=== PATIENT | female | born 1940 | race African-American/Black ===

== ENCOUNTER 2022-08-23 01:22 | Inpatient (IN) | payer OTHER ==
[~2022-08-23] VITALS: Ht 172.7 cm; Wt 56.8 kg
[2022-08-23 03:45] LABS: HEMATOCRIT. 31.3 % (36.0-48.0); HEMOGLOBIN. 10.2 g/dL (12.0-16.0); MEAN CORPUSCULAR HEMOGLOBIN 28.5 pg (28.0-32.0); MEAN CORPUSCULAR VOLUME 87.5 fL (81.0-99.0); MEAN PLATELET VOLUME 6.9 fl (7.4-10.4); PLATELET 210 x1000/uL (130-400); RED BLOOD CELL COUNT 3.58 mill/uL (4.2-5.4); RED CELL DISTRIBUTION WIDTH 14.9 % (11.6-14.6)
[2022-08-23 03:53] LABS: CHLORIDE 105 mEq/L (98-107)
[2022-08-23 04:07] LABS: PLATELET ESTIMATE NORMAL
[2022-08-23] MEDS ORDERED: CEFTRIAXONE 1 G PREMIX 50 ML IV NR (06:00)
[2022-08-23] MEDS ORDERED: SODIUM CHLORIDE 0.9% 250 ML IV NR (06:00)
[2022-08-23] MEDS ORDERED: ENOXAPARIN 40MG/0.4ML SYR SUBCUT SCH (10:00)
[2022-08-23] MEDS ORDERED: ACETAMINOPHEN 325MG TABLET PO PRN ×2 (10:00)
[2022-08-23] MEDS ORDERED: CLONIDINE 0.1MG TABLET PO PRN (10:00)
[2022-08-23] MEDS ORDERED: ONDANSETRON HCL 4MG/2ML INJ IV PRN (10:00)
[2022-08-23] MEDS ORDERED: DIPHENHYDRAMINE 50MG/ML VIAL IV PRN (10:00)
[2022-08-23] MEDS ORDERED: MAGNESIUM/ALUMINUM HYDROXIDE/SIMETHICONE 30ML UDC PO PRN (10:00)
[2022-08-23 10:04] VITALS: BP 132/65
[2022-08-23 10:26] VITALS: BP 165/65
[2022-08-23] MEDS: ENOXAPARIN 30MG/0.3ML SYR SUBCUT SCH (11:22)
[2022-08-23 12:00] VITALS: BP 155/69
[2022-08-23] MEDS ORDERED: ATOR40TA70 PO (13:34)
[2022-08-23] MEDS ORDERED: AMLO5TAB88 PO (13:34)
[2022-08-23] MEDS ORDERED: LOSA1TAB37 PO (13:34)
[2022-08-23] MEDS ORDERED: EZET10TA13 PO (13:34)
[2022-08-23] MEDS ORDERED: BIOT5000 PO (13:34)
[2022-08-23] MEDS ORDERED: DONE-51 PO (13:34)
[2022-08-23] MEDS ORDERED: MIRT-89 PO (13:34)
[2022-08-23] MEDS ORDERED: VITA250012 PO (13:34)
[2022-08-23] MEDS ORDERED: SITA1TAB2 PO (13:34)
[2022-08-23] MEDS ORDERED: ASPI-1497 PO (13:34)
[2022-08-23] MEDS ORDERED: ZINC100T2 PO (13:34)
[2022-08-23] MEDS ORDERED: CARV3.1242 PO (13:34)
[2022-08-23] MEDS ORDERED: CALC-899 PO (13:34)
[2022-08-23] MEDS ORDERED: CYAN-33 PO (13:34)
[2022-08-23] MEDS ORDERED: FERR324T17 MT (13:34)
[2022-08-23] MEDS ORDERED: MEMA5TAB42 PO (13:34)
[2022-08-23] MEDS ORDERED: ZINC100T8 PO (13:34)
[2022-08-23] MEDS: SODIUM CHLORIDE 0.9% INJ 3ML FLUSH IVF SCH ×2 (14:22→22:22)
[2022-08-23 15:53] LABS: CLARITY URINE CLEAR (CLEAR); COLOR URINE YELLOW (YELLOW); KETONES URINE NEGATIVE (NEGATIVE); LEUKOCYTE ESTERASE URINE NEGATIVE (NEGATIVE); NITRITE URINE NEGATIVE (NEGATIVE); OCCULT BLOOD URINE NEGATIVE (NEGATIVE); PROTEIN URINE TRACE (NEGATIVE); SPECIFIC GRAVITY URINE 1.013 (1.005-1.030); UROBILINOGEN URINE 0.2 E.U./dL (0.2-1.0)
[2022-08-23 16:00] VITALS: BP 132/58
[2022-08-23] MEDS ORDERED: DEXTROSE 50% WATER 50ML SYRINGE IV PRN (16:45)
[2022-08-23] MEDS: BLOOD SUGAR DIAGNOSTIC STRIP TEST SCH ×2 (17:20→21:00)
[2022-08-23] MEDS: LOSARTAN POTASSIUM 50 MG TABLET PO SCH (17:34)
[2022-08-23] MEDS: CALCIUM CARBONATE 500MG TABLET CHEW PO SCH (17:34)
[2022-08-23] MEDS: INSULIN LISPRO 100 UNITS/ML SUBCUT SCH ×2 (17:43→21:00)
[2022-08-23 20:00] VITALS: BP 171/64
[2022-08-23] MEDS ORDERED: ZOLPIDEM TARTRATE 5MG TABLET PO PRN (21:00)
[2022-08-23] MEDS: MIRTAZAPINE 15MG TABLET PO SCH (22:20)
[2022-08-23] MEDS: CARVEDILOL 3.125 MG TABLET PO SCH (22:20)
[2022-08-23] MEDS: ATORVASTATIN CALCIUM 40MG TABLET PO SCH (22:21)
[2022-08-24] VITALS (8 sets, daily range): BP systolic 151–166; BP diastolic 51–72
[2022-08-24] MEDS: CALCIUM CARBONATE 500MG TABLET CHEW PO SCH ×3 (06:57→17:41)
[2022-08-24] MEDS: BLOOD SUGAR DIAGNOSTIC STRIP TEST SCH ×4 (06:57→21:00)
[2022-08-24] MEDS: SODIUM CHLORIDE 0.9% INJ 3ML FLUSH IVF SCH ×3 (06:57→22:09)
[2022-08-24] MEDS: INSULIN LISPRO 100 UNITS/ML SUBCUT SCH ×4 (07:01→21:00)
[2022-08-24] MEDS: DONEPEZIL HCL 5MG TABLET PO SCH (09:29)
[2022-08-24] MEDS: ASPIRIN 81MG EC TABLET PO SCH (09:29)
[2022-08-24] MEDS: AMLODIPINE 5MG TABLET PO SCH (09:29)
[2022-08-24] MEDS: ENOXAPARIN 30MG/0.3ML SYR SUBCUT SCH (09:29)
[2022-08-24] MEDS: ZINC SULFATE 220 MG ( 50 ) CAPSULE PO SCH (09:30)
[2022-08-24] MEDS: EZETIMIBE 10MG TABLET PO SCH (09:30)
[2022-08-24] MEDS: CARVEDILOL 3.125 MG TABLET PO SCH ×2 (09:30→22:02)
[2022-08-24] MEDS: LOSARTAN POTASSIUM 50 MG TABLET PO SCH ×2 (09:30→17:41)
[2022-08-24] MEDS: MEMANTINE HCL 5MG TABLET PO SCH (09:30)
[2022-08-24] MEDS: BRIMONIDINE 0.2% OPHTH DROPS 5ML BOTHEYE SCH ×2 (15:11→22:04)
[2022-08-24] MEDS: DORZOLAM/TIMOLOL 2.23/0.68% OPHTH DROPS 10ML BOTHEYE SCH ×2 (15:11→22:08)
[2022-08-24] MEDS ORDERED: BRIMONIDINE 0.2% OPHTH DROPS 5ML BOTHEYE SCH (21:00)
[2022-08-24] MEDS ORDERED: DORZOLAM/TIMOLOL 2.23/0.68% OPHTH DROPS 10ML BOTHEYE SCH (21:00)
[2022-08-24] MEDS: ATORVASTATIN CALCIUM 40MG TABLET PO SCH (22:03)
[2022-08-24] MEDS: MIRTAZAPINE 15MG TABLET PO SCH (22:08)
[2022-08-25] VITALS: BP 155/59
[2022-08-25] MEDS: INSULIN LISPRO 100 UNITS/ML SUBCUT SCH ×2 (06:05→12:08)
[2022-08-25] MEDS: SODIUM CHLORIDE 0.9% INJ 3ML FLUSH IVF SCH (06:05)
[2022-08-25] MEDS: BLOOD SUGAR DIAGNOSTIC STRIP TEST SCH ×2 (06:05→11:54)
[2022-08-25] MEDS: CALCIUM CARBONATE 500MG TABLET CHEW PO SCH ×2 (06:05→12:05)
[2022-08-25 08:00] VITALS: BP 160/70
[2022-08-25 08:30] LABS: TOTAL IRON BINDING CAPACITY 210 ug/dL (250-450)
[2022-08-25] MEDS: MEMANTINE HCL 5MG TABLET PO SCH (08:30)
[2022-08-25] MEDS: LOSARTAN POTASSIUM 50 MG TABLET PO SCH (08:30)
[2022-08-25] MEDS: ASPIRIN 81MG EC TABLET PO SCH (08:30)
[2022-08-25] MEDS: ZINC SULFATE 220 MG ( 50 ) CAPSULE PO SCH (08:30)
[2022-08-25] MEDS: DONEPEZIL HCL 5MG TABLET PO SCH (08:30)
[2022-08-25] MEDS: EZETIMIBE 10MG TABLET PO SCH (08:30)
[2022-08-25] MEDS: CARVEDILOL 3.125 MG TABLET PO SCH (08:31)
[2022-08-25] MEDS: AMLODIPINE 5MG TABLET PO SCH (08:31)
[2022-08-25] MEDS: BRIMONIDINE 0.2% OPHTH DROPS 5ML BOTHEYE SCH (08:31)
[2022-08-25] MEDS: DORZOLAM/TIMOLOL 2.23/0.68% OPHTH DROPS 10ML BOTHEYE SCH (08:32)
[2022-08-25] MEDS: ENOXAPARIN 30MG/0.3ML SYR SUBCUT SCH (10:20)
[2022-08-25 12:00] VITALS: BP 134/57
[2022-08-30] MEDS ORDERED: ERGOCALCIFEROL 50000UNITS CAPSULE PO ONE (09:00)
== END 2022-08-25 13:30 | disposition home or self-care (01) | DRG 73 ==
LOC: EDBD 01:22 → ER 01:22 → 7EST 05:51 → ENRESERV 06:43
PROVIDERS: ADMIT Internal Medicine; ATTEND Internal Medicine
DX: G90.8 Other disorders of autonomic nervous system (principal); U07.1 COVID-19; E78.00 Pure hypercholesterolemia, unspecified; E11.9 Type 2 diabetes mellitus without complications; F03.90 Unspecified dementia, unspecified severity, without behavioral disturbance, psychotic disturbance, mood disturbance, and anxiety; I11.0 Hypertensive heart disease with heart failure; I50.9 Heart failure, unspecified; D64.9 Anemia, unspecified
CPT/HCPCS: 36415; 71045; 76705; 80053; 81003; 82962; 83036; 83540; 83550; 83880; 84484; 85025; 87426; 93005; 97162; 99285; C9803; J0696; J1650; J1815